=== PATIENT | female | born 1980 | race Caucasian/White ===

== ENCOUNTER 2021-04-28 19:12 | Emergency (ER) | payer OTHER ==
[~2021-04-28] VITALS: Ht 165.1 cm; Wt 98.0 kg
[2021-04-28] MEDS ORDERED: EFFEXOR XR150 MG PO (19:21)
[2021-04-28] MEDS ORDERED: ADDERALL XR 3030 MG PO (19:21)
[2021-04-28] MEDS ORDERED: DOXYCYCLINE 10100 M2 PO (19:50)
[2021-04-28] MEDS ORDERED: PERIDEX 0.12%473 M1 SWISH&SPIT (19:55)
[2021-04-28] MEDS ORDERED: HYDROCODON-ACE1 EAC7 PO (20:11)
[2021-04-28 20:22] VITALS: BP 161/93
== END 2021-04-28 20:22 | disposition home or self-care (01) ==
LOC: M.ERS 19:12
DX: K04.7 Periapical abscess without sinus (principal); F12.90 Cannabis use, unspecified, uncomplicated; Z98.890 Other specified postprocedural states; Z79.899 Other long term (current) drug therapy; Z88.8 Allergy status to other drugs, medicaments and biological substances; Z88.2 Allergy status to sulfonamides; Z88.6 Allergy status to analgesic agent